=== PATIENT | male | born 1975 | race Caucasian/White ===

== ENCOUNTER 2020-03-18 17:56 | Emergency (ER) | payer BC ==
[~2020-03-18] VITALS: Ht 167.6 cm; Wt 61.2 kg
[~2020-03-18 17:56] MED LIST: BUPR100T5 PO; VENL37.591 PO
--- NOTE | 2020-03-18 18:10 | NUR ---
DR Reagan at the bedside for MSE.
--- NOTE | 2020-03-18 18:17 | NUR ---
Patient discharged to home in stable condition. Written and verbal after care instructions given. Patient verbalizes understanding of instructions. Stressed follow up or return to ER for worsening s/s.
[2020-03-18 18:18] VITALS: BP 114/82
== END 2020-03-18 18:19 | disposition home or self-care (01) ==
LOC: ER 17:58
DX: K02.9 Dental caries, unspecified (principal); K04.7 Periapical abscess without sinus
CPT/HCPCS: A4663